=== PATIENT | male | born 1960 | race Caucasian/White ===

== ENCOUNTER 2019-09-24 16:10 | Emergency (ER) | payer MEDICAID, SELFPAY ==
[2019-09-24 16:15] VITALS: BP 168/110; PULSE 79; RESP 20; TEMP 36; O2SAT 98
--- NOTE | 2019-09-24 16:24 | W.ED.GENAD ---
Discharge Plan Disposition Patient Disposition: HOME Condition: Good Discharge Details Chief Complaint: Orthopedic Clinical Impression: Left ankle sprain Primary Care Provider: Eve Bonilla ED Provider: Jassi Kern Home Meds and New Rx's Prescriptions: No Action No Known Home Meds RF: 0 Discharge Instructions Instructions: Ankle Sprain (ED) Additional Instructions: Your x-ray shows evidence of 2 old fractures but no new fracture. I suspect you have a notable sprain. Please use a walking boot for the next 5 to 7 days as your ankle heals. After this you can transition to Wilian wraps, ice, and continue Tylenol and Motrin. If you notice any worsening of your symptoms, or any new symptoms such as vomiting, diarrhea, fever, chills, shortness of breath, chest pain, numbness, weakness, or fainting , please return immediately to the emergency department for reevaluation. Please follow up with your primary care provider as soon as possible for reassessment and reevaluation. As always, it was a pleasure participating in your medical care today. Referrals: Eve Bonilla, JOSETTE [Primary Care Provider] - Discharge Data Discharge Date/Time-TO BE ENTERED AT DEPARTURE: 09/24/19 17:23 Medical Decision Making This is a 59-year-old male with no significant past medical history who presents for left ankle pain. Gotten a day of skiing, had a few beers, then was walking down the steps when he slipped subsequently inverted his left ankle. He is able to walk with a mild limp. Pain is present on the lateral aspect with mild swelling. Pain is noticeably minimal but this may be secondary to mild alcohol use. We will get an x-ray to evaluate for fracture. Differential is highest for sprain. 5:06 PM X-ray results show no evidence of acute fracture of her there are 2 old avulsion fracture fragments which are not acute. Suspect mild to moderate sprain. Will give walking boot, recommend continued rest, ice, and NSAIDs discussed red flags for which to return. I have extensively reviewed the treatment plan and discharge instructions with the patient. I have addressed all patient concerns at this time. The patient was made aware of what symptoms to monitor for that would warrant a return to the emergency department. Discussed the plan with the patient, they demonstrate verbal understanding and agreement with our assessment and plan at this time. FINDINGS: Bones/joints: Ankle mortise appears symmetric. 7 x 6 mm old appearing avulsion fracture from the medial malleolus. In addition there is a smaller 4 x 1 mm avulsion fracture fragment. There is a 12 x 6 mm avulsion fracture fragment on one view just medial to the lateral malleolus that appears to be an old fracture. No definite new fracture from the lateral malleolus. Soft tissues: Moderate soft tissue swelling over lateral malleolus. There is no radiopaque foreign body.There is no gas in the soft tissue. IMPRESSION: Prominent lateral soft tissue swelling. There are both medial and lateral avulsion fracture fragments but these appear old. Thank you for allowing us to participate in the care of your patient. Dictated and Authenticated by: Kristian Brody MD 09/24/2019 4:55 PM Eastern Time ([place] & [place]) HPI General Date/Time Provider Initiated Documentation: 09/24/19 16:17. HPI Narrative: This is a 59-year-old male with no significant past medical history who presents today for evaluation of left ankle pain. Patient just finished skiing for the day and after having a few beers was working down to his car when he slipped on shear ice, and internally rotated his left ankle. Was able to walk on it but does have a mild limp secondary to this. He has taken no NSAIDs since then. Denies numbness or tingling. Denies any pain in his knee or hip. No other complaints. No other modifying factors. Related Data Home Medications Medication Instructions Recorded Confirmed Unknown [No Known Home Meds] 09/24/19 09/24/19 Allergies Allergy/AdvReac Type Severity Reaction Status Date / Time No Known Allergies Allergy Unverified 09/24/19 16:20 General Stated Complaint: Orthopedic SENIA: 4 Review of Systems All systems reviewed & are unremarkable except as noted in HPI and below PFSH Social History Smoking/Tobacco Use Status: Never Alcohol Intake: current Alcohol Intake frequency: a few times a month Drug use: Never Exam Narrative Exam Narrative: 1.Const: Well-nourished, Well-developed, appearing stated age 2.Eyes: PERRL, no conjunctival injection, and symmetrical lids. 3.ENT: Atraumatic external nose and ears. Moist MM. Neck: Symmetric, trachea midline, No thyromegaly. 4.CVS: +S1/S2, No murmurs or gallops. Peripheral pulses 2+ and equal in all extremities. Brisk capillary refill in all extremities. 5.RESP: Unlabored respiratory effort. Clear to auscultation bilaterally. No wheezes rales or rhonchi 6.GI: Soft, Nontender/Nondistended, No hepatosplenomegaly. No guarding or rebound. 7.MSK: Normocephalic, Siomara cyanosis or clubbing, Normal movement of all extremities Left ankle: Left ankle demonstrates notable swelling over the lateral malleolus. Mild tenderness the posterior and inferior aspect. No tenderness over the anterior aspect. No weakness or laxity for pronation or supination. No weakness for anterior posterior drawer. Good strength with plantar and dorsiflexion. Sensation intact, dorsalis pedis and posterior tibial pulse +2 bilaterally. Brisk capillary refill for all toes. Left knee: The knee is stable to varus, valgus, and anterior drawer stress. No deformity. Patellar grind test is negative. Lulu test is negative for pain. Patient is able to walk without difficulty. No edema or warmth to the joint. No ttp to the patella, tibial plateau, or fibular head. 8.Skin: Warm, Dry. No rashes or lesions. 9.Neuro: centrifugal spinner II-XII grossly intact. Sensation grossly intact, no focal neurologic deficits. 10.Psych: (AAO) x3. Appropriate mood and affect Course Vital Signs Vital signs: Vital Signs Temperature 36 C L 09/24/19 16:15 Pulse 79 09/24/19 16:15 Respiratory Rate 09/24/19 16:15 Blood Pressure 168/110 H 09/24/19 16:15 Pulse Oximetry 98 09/24/19 16:15 Temperature 36 C L 09/24/19 16:15 Temperature Source Skin 09/24/19 16:15 Pulse 79 09/24/19 16:15 Respiratory Rate 20 09/24/19 16:15 Respiratory Effort 09/24/19 16:21 Blood Pressure 168/110 H 09/24/19 16:15 Blood Pressure Position Sitting 09/24/19 16:15 Pulse Oximetry 98 09/24/19 16:15 Oxygen Delivery Method Room Air 09/24/19 16:15 Oxygen Flow Rate 0 09/24/19 16:15 Pain Level 0 09/24/19 16:15 Comment 2/10 pain with any movement 09/24/19 16:15
--- NOTE | 2019-09-24 16:42 | DI.RAD_ITS ---
EXAM: XR ANKLE LT COMPLETE INDICATION: rolled left ankle, alcohol on board,PAIN COMPARISON: No exams were available for comparison TECHNIQUE: 2D digital imaging was performed. FINDINGS: There are osseous fragments adjacent to both the medial and lateral malleoli. These appear well ryan icated and old. No definite acute fracture or dislocation is identified. There is soft tissue swell ing about the ankle laterally. There is a spur at the plantar surface of the calcaneus. IMPRESSION: Old-appearing avulsion fracture fragments about the ankle. No definite acute fracture or dislocation. Soft tissue swelling about the ankle laterally.
--- NOTE | 2019-09-24 16:56 | DI.VRAD_ITS ---
PROCEDURE INFORMATION: Exam: XR Left Ankle Exam date and time: 09/24/2019 4:46 PM Age: 59 years old Clinical indication: Other: Rolled left ankle, alcohol on board TECHNIQUE: Imaging protocol: XR Left ankle. Views: 3 or more views. COMPARISON: No relevant prior studies available. FINDINGS: Bones/joints: Ankle mortise appears symmetric. 7 x 6 mm old appearing avulsion fracture from the medial malleolus. In addition there is a smaller 4 x 1 mm avulsion fracture fragment. There is a 12 x 6 mm avulsion fracture fragment on one view just medial to the lateral malleolus that appears to be an old fracture. No definite new fracture from the lateral malleolus. Soft tissues: Moderate soft tissue swelling over lateral malleolus. There is no radiopaque foreign body.There is no gas in the soft tissue. IMPRESSION: Prominent lateral soft tissue swelling. There are both medial and lateral avulsion fracture fragments but these appear old. Dictated and Authenticated by: Kristian Brody MD. Ordering:SHEYLA Keene MD
== END 2019-09-24 17:23 | disposition home or self-care (01) ==
PROVIDERS: Emergency Provider Student in an Organized Health Care Education/Training Program; PCP Nurse Practitioner Family
DX: S93.402A Sprain of unspecified ligament of left ankle, initial encounter (principal); W00.1XXA Fall from stairs and steps due to ice and snow, initial encounter; X50.9XXA Other and unspecified overexertion or strenuous movements or postures, initial encounter
CPT/HCPCS: 29515; 99283; 73610; L4361

== ENCOUNTER 2024-03-30 14:25 | Emergency (ER) | payer MEDICARE, SELFPAY ==
[2024-03-30 14:41] VITALS: BP 238/154; PULSE 103; RESP 18; TEMP 37.1; O2SAT 96
--- NOTE | 2024-03-30 14:58 | ED.GENADUL_ITS ---
Discharge Plan Disposition Patient Disposition: Home Condition: Stable Discharge Details Clinical Impression: Hypertension Primary Care Provider: Eve Bonilla ED Provider: Kristian Marcano Home Meds and New Rx's Prescriptions: New amlodipine 5 mg tablet 5 mg PO DAILY Qty: 30 0RF Discharge Instructions Instructions: Controlling your blood pressure through lifestyle HPI General Mode of arrival: ambulatory . Date/Time Provider Initiated Documentation: 03/30/24 14:48 . Limitations to Documentation: no limitations . Information obtained by: patient . History of Present Illness 63 year old M presents to the emergency department with the chief complaint of high bp, described as moderate, Patient started experiencing this unknown and it has been constant. No relieving factors improve symptom(s), No exacerbating factors reported . Patient notes no other symptoms.. Related Data Home Medications ?Medication ?Instructions ?Recorded ?Confirmed amlodipine 5 mg tablet 5 mg PO DAILY #30 tabs 03/30/24 Previous Rx's ?Medication ?Instructions ?Recorded amlodipine 5 mg tablet 5 mg PO DAILY #30 tabs 03/30/24 Allergies Allergy/AdvReac Type Severity Reaction Status Date / Time No Known Allergies Allergy Unverified 03/30/24 14:44 General Stated Complaint: GenMedical SENIA: 2 Review of Systems All systems reviewed & are unremarkable except as noted in HPI and below Constitutional Constitutional: Denies chills, Denies fever(s) and Denies weakness Eyes Eyes: Denies loss of vision Cardiovascular Cardiovascular: Denies chest pain and Denies dyspnea Respiratory Respiratory: Denies cough and Denies dyspnea Gastrointestinal Gastrointestinal: Denies abdominal pain, Denies nausea and Denies vomiting Musculoskeletal Musculoskeletal: Denies joint swelling Neurologic Neurologic: Denies loss of vision and Denies weakness Exam Const General: no acute distress Orientation: alert HENKY Head: normal to inspection Ears: external ears normal General nose exam: external nose normal Mouth: moist mucous membranes Eyes General: appearance normal, both eyes and all related structures Neck Neck: normal visual inspection Resp Effort & Inspection: normal respiratory effort and able to speak in complete sentences Auscultation: clear to auscultation bilaterally Cardio Jugular venous pressure: no JVD Rate: regular rate Skin General skin exam: no rashes or lesions noted Neuro General: patient alert and patient oriented x3 Extrem General: normal to inspection Psych Mental Status: mental status grossly normal Course Vital Signs Vital signs: Vital Signs Temperature 37.1 C 03/30/24 14:41 Pulse 103 H 03/30/24 14:41 Respiratory Rate 18 03/30/24 14:41 Blood Pressure 238/154 H 03/30/24 14:41 Pulse Oximetry 96 03/30/24 14:41 Temperature 37.1 C 03/30/24 14:41 Pulse 103 H 03/30/24 14:41 Respiratory Rate 18 03/30/24 14:41 Blood Pressure 238/154 H 03/30/24 14:41 Pulse Oximetry 96 03/30/24 14:41 Pain Level 0 03/30/24 14:41 Medical Decision Making 63 yo male with no chronic medical problems but does not see any provider regularly comes in with elevated bp. Was at local eye care center for a routine visit and bp over 170 and then over 200 systolic so sent here. PAtient denies any symptoms, feels well. Denies headache, chest pain, dyspnea, abdominal pain. HE is caox4 and speaking clearly, normal gait, no focal deficits. Suspect asymptomatic hypertension. Will check chem 7 to evaluate renal function and likely start on amlodipine until he can see a pcp. Given no cp or sob do not feel ekg or cardiac workup indicated Patient asymptomatic and CMP reassuring. Discussed with him and will start 5 mg daily amlodipine and placed on the follow-up list to see a PCP. Return precautions given Differential Diagnosis Differential Diagnosis: asymptomatic hypertension Lab Data Lab results reviewed: Yes I reviewed the patient's lab results. Quality:SDOH Health Related Social Needs: No Data to Display PFSH All Active Problems (Updated 03/30/24 @ 16:09 by Kristian Marcano MD) Hypertension (Chronic) Bitten by mouse (Acute) Social History Smoking/Tobacco Use Status: Never Smoking risk assessment performed?: Yes Alcohol Intake: current Alcohol Intake frequency: a few times a month Drug use: Never Substance use type: does not use Do you feel safe at home: Yes Do you feel safe in your relationship?: Yes
[2024-03-30 15:43] VITALS: BP 197/137; RESP 16
[2024-03-30 15:51] LABS: ALT 37 U/L (16-63); AST 24 U/L (15-37); Albumin 3.9 g/dL (3.4-5.0); Alkaline Phosphatase 69 U/L (46-116); Anion Gap 12.6 mmol/L (3-11); BUN 10 mg/dL (7-18); CO2 22.4 mmol/L (21.0-32.0); CREATININE 0.9 mg/dL (0.70-1.30); Calcium 8.8 mg/dL (8.5-10.1); Chloride 100 mmol/L (98-107); Estimated GFR 94.78 (mL/min/1.73m2); Glucose 97 mg/dL (74-106); Potassium 3.8 mmol/L (3.5-5.1); Sodium 135 mmol/L (136-145); Total Protein 7.7 g/dL (6.4-8.2)
[2024-03-30] MEDS: amLODIPine 5 MG TAB PO (16:15)
[2024-03-30 16:17] VITALS: BP 216/132; PULSE 86; RESP 16; O2SAT 16
--- NOTE | 2024-03-30 16:17 | NUR.NOTE ---
Nursing Note: PT needs PCP follow up in one week for hypertension. Suzanna, ED
--- NOTE | 2024-03-30 16:18 | NUR.NOTE ---
RN notified of high blood pressure: 216/132 Nursing Note:
[2024-03-30 16:21] VITALS: BP 216/132; PULSE 86; RESP 16; TEMP 37.1; O2SAT 99
[2024-03-30 16:23] VITALS: BP 216/132; PULSE 86; RESP 16; TEMP 37.1; O2SAT 99
== END 2024-03-30 16:24 | disposition home or self-care (01) ==
PROVIDERS: Emergency Provider Emergency Medicine; PCP Nurse Practitioner Family
DX: I10 Essential (primary) hypertension (principal)
CPT/HCPCS: 36415; 80053; 99283

== ENCOUNTER 2024-05-03 02:36 | Outpatient (CLI) | payer MEDICARE, SELFPAY | END 2024-05-03 02:56 | LOC: DI 02:37 | PROVIDERS: PCP Nurse Practitioner Family; Visit Provider Emergency Medicine | DX: I10 Essential (primary) hypertension (principal) | CPT/HCPCS: 93306 ==

== ENCOUNTER 2024-05-03 03:50 | Outpatient (CLI) | payer MEDICARE, SELFPAY ==
[2024-05-03 09:41] LABS: ALT 59 U/L (16-63); AST 32 U/L (15-37); Albumin 3.9 g/dL (3.4-5.0); Alkaline Phosphatase 86 U/L (46-116); Bilirubin, Direct 0.1 mg/dL (0.0-0.2); Calculated LDL 269 mg/dL (<100); Cholesterol 353 mg/dL (<200); HDL Cholesterol 49 mg/dL (40-60); Total Protein 8.3 g/dL (6.4-8.2); Triglyceride 175 mg/dL (<150)
== END 2024-05-03 03:51 | disposition home or self-care (01) ==
LOC: LBO 03:50
PROVIDERS: PCP Nurse Practitioner Family; Referring Provider Emergency Medicine; Visit Provider Emergency Medicine
DX: I10 Essential (primary) hypertension (principal); E66.9 Obesity, unspecified
CPT/HCPCS: 36415; 80061; 80076; 93306

== ENCOUNTER 2024-08-30 02:53 | Outpatient (CLI) | payer MEDICARE, SELFPAY ==
[2024-08-30 10:11] LABS: Calculated LDL 53 mg/dL (<100); Cholesterol 135 mg/dL (<200); HDL Cholesterol 62 mg/dL (40-60); Triglyceride 102 mg/dL (<150)
== END 2024-08-30 02:54 | disposition home or self-care (01) ==
LOC: LBO 02:53
PROVIDERS: PCP Family Medicine; Referring Provider Family Medicine; Visit Provider Family Medicine
DX: E78.5 Hyperlipidemia, unspecified (principal)
CPT/HCPCS: 36415; 80061

== ENCOUNTER 2024-09-20 02:37 | Outpatient (CLI) | payer MEDICARE, SELFPAY ==
--- NOTE | 2024-09-20 07:30 | DI.NM_ITS ---
APPROVED REPORT Exam: Pharmacologic Patient Location: Out-Patient Room/Bed: Stress Nurse: Aixa Gibson RN Ordering Provider:SALAS MOSS, Contact Number: [phone] BMI: 38.61 Baseline Rhythm: Sinus Rhythm Indications: Severe stenosis seen on CT angiogram Medical History Medical History: Atherosclerosis of left circumflex artery, left ventricular hypertrophy, HLD, obesit y, severe HTN Cardiac Medications: Amlodipine, aspirin, ezetimibe, hydrochlorothiazide, losartan, rosuvastatin Allergies: NKA Cardiac Risk Factors: HTN, HLD, CVD, obesity Previous Cardiac Procedures: None Pretest Chest Pain Characteristics: None Exercise History: Sedentary Physical Disabilities: None Lung Sounds: Clear to auscultation Heart Sounds: Regular Stress Test Details Test: Pharmacologic stress testing performed using 0.4 mg of regadenoson per 5 mL given IV over 10 s econds. Reason for pharmacologic stress test: pt hx. Nuclear Acquisition: Rest Tc-99m/Stress Tc-99m 1 day Rest Isotope: Tc-99m Sestamibi. Dose: 12.0 Date: 09/20/2024 Injection Time: 1110 Stress Isotope: Tc-99m Sestamibi. Dose: 36.0 Date: 09/20/2024 Injection Time: 1315 HR Resting HR Supine: 87 bpm Max Heart Rate (APMHR): 155 bpm Target HR (85% APMHR): 132 bpm Max HR Achieved: 103 bpm % of APMHR: 66 Recovery HR: 93 bpm BP Resting BP Supine: 150/90 mmHg Max BP: 170/100 mmHg Recovery BP: 142/88 mmHg ECG Resting ECG: Sinus Rhythm Stress ECG: Sinus Tachycardia ST Change: Nondiagnostic low heart rate Recovery ECG: Sinus Rhythm Recovery ST Change: Nondiagnostic low heart rate Clinical Stress Symptoms: None Angina Score: None Rate Pressure Product: [id number] Stress ECG Conclusion 1. Resting electrocardiogram is normal 2. Patient underwent testing using pharmacologic stress with regadenoson 3. Peak heart rate achieved was 67% of maximal predicted heart rate for age 4. Electrocardiographic portion of the test was nondiagnostic 5. There were no significant dysrhythmias 6. See MPI report MPI Conclusion Myocardial perfusion is normal. There is no ischemia or evidence of prior infarction Ejection fraction is 68% with normal wall motion
[2024-09-20] MEDS: Regadenoson 0.4 MG/5 ML SYR IVP (13:23)
== END 2024-09-20 02:57 ==
LOC: DI 02:37
PROVIDERS: PCP Family Medicine; Visit Provider Family Medicine
DX: I25.10 Atherosclerotic heart disease of native coronary artery without angina pectoris (principal)
CPT/HCPCS: 78452; 93016; 93018; 93017; J2785

== ENCOUNTER 2024-10-29 10:41 | Outpatient (CLI) | payer MEDICARE, SELFPAY ==
--- NOTE | 2024-10-29 10:45 | RT.EKG_ITS ---
APPROVED REPORT Exam: Resting ECG Reason for Exam: npw baseline needed Patient Location: O HR:82 bpm ECG Measurements Heart Rate 82 AXIS HI 186 P 13 QRSd 124 QRS 5 QT 387 T -14 QTc 452 Conclusion Sinus rhythm...normal P axis, V-rate 50- 99 Normal Electrocardiogram
== END 2024-10-29 10:42 | disposition home or self-care (01) ==
LOC: DI.CARD 10:49
PROVIDERS: PCP Family Medicine; Referring Provider Family Medicine; Visit Provider Registered Nurse
DX: I10 Essential (primary) hypertension (principal); I51.7 Cardiomegaly
CPT/HCPCS: 93010

== ENCOUNTER → 2024-10-29 10:41 | Outpatient (BNVA) | payer MEDICARE, SELFPAY | PROVIDERS: PCP Family Medicine; Referring Provider Family Medicine; Visit Provider Registered Nurse | DX: I25.10 Atherosclerotic heart disease of native coronary artery without angina pectoris (principal); I10 Essential (primary) hypertension; E78.5 Hyperlipidemia, unspecified | CPT/HCPCS: 93005; 99215 ==

== ENCOUNTER → 2025-02-06 15:07 | Outpatient (BNVA) | payer MEDICARE, SELFPAY | PROVIDERS: PCP Family Medicine; Referring Provider Family Medicine; Visit Provider Registered Nurse | DX: I10 Essential (primary) hypertension (principal); I25.10 Atherosclerotic heart disease of native coronary artery without angina pectoris; Z79.899 Other long term (current) drug therapy | CPT/HCPCS: 99214 ==